=== PATIENT | male | born 1990 | race Caucasian/White ===

== ENCOUNTER 2017-05-09 16:49 | Emergency (ER) | payer OTHER ==
[2017-05-09 17:04] VITALS: TEMP 97.8
[2017-05-09] MEDS: traMADol 37.5MG/APAP 325MG 1 EA TAB PO ONE (17:33)
[2017-05-09] MEDS: KETOROLAC TROMETHAMINE INJ 60 MG/2 ML VIAL IM ONE (17:35)
[2017-05-09] MEDS: ORPHENADRINE CITRATE 30 MG/ML AMP IM ONE (17:35)
--- NOTE | 2017-05-09 17:40 | ED.PDOC ---
History of Present Illness - General Chief Complaint: Back Pain or Injury Stated Complaint: left sided lower back pain Time Seen by Provider: 05/09/17 17:10 Source: patient - History of Present Illness Initial Comments: PT PRESENTS TO THE ED WITH COMPLAINT OF SUDDEN ONSET OF LEFT LOWER BACK PAIN THAT OCCURRED TODAY WHILE PUTTING ON HIS BOOT AT WORK. PT HAS A HISTORY OF LUMBAR DISC HERNIATION AND REPORTS INTERMITTENT BACK PAIN A RESULT OF. PT REPORTS TAKING NO OTC PAIN MEDS. Timing/Duration: 7-24 hours Quality/Severity: moderate, dullness, radiation Back Pain Location: lumbar spine Back Pain Radiation: upper legs Method of Injury/Prior Injury: twisted Improving Factors: immobilization, rest Worsening Factors: movement Associated Symptoms: denies symptoms Allergies/Adverse Reactions: Allergies Penicillins Allergy (Verified 05/09/17 17:04) Home Medications: Ambulatory Orders Cyclobenzaprine HCl [Flexeril] 10 mg PO Q6HR PRN #20 tab 05/09/17 Ibuprofen 800 mg PO Q8HR PRN #30 tab 05/09/17 Tramadol-Acetaminophen [Ultracet] 1 - 2 tab PO Q6HR PRN #30 tab 05/09/17 Review of Systems - Review of Systems Constitutional: Denies: chills, fever Respiratory: Denies: cough, short of breath Cardiology: Denies: chest pain, palpitations Gastrointestinal/Abdominal: Denies: diarrhea, vomiting Genitourinary: Denies: dysuria, frequency Musculoskeletal: States: see HPI, back pain. Denies: neck pain Skin: Denies: dryness, lesions Past Medical History (General) - Patient Medical History Hx Stroke: No Hx Congestive Heart Failure: No Hx Diabetes: No - Vaccination History Hx Influenza Vaccination: No - Social History Hx Tobacco Use: Yes Family Medical History - Family History Father Family History: Unknown Living Status: Unknown Physical Exam - Physical Exam General Appearance: Alert, Comfortable, No apparent distress, Well Developed, Well Groomed, Well Hydrated Back Exam: no vertebral tenderness, decreased range of motion, muscle spasm - TO LEFT PARA LUMBAR REGION Extremity Exam: no evidence of injury Neurologic: alert, normal mood/affect, oriented x 3 Skin Exam: normal color, warm/dry Progress - Progress Progress: 05/09/17 18:18 PT REPORTS SIGNIFICANT IMPROVEMENT IN SYMPTOMS AFTER PAIN MEDS AND MUSCLE RELAXANT. PT ABLE TO STAND UPRIGHT WITHOUT DIFFICULTY. Departure - Departure Clinical Impression: Acute back pain with sciatica Qualifiers: Laterality: left Qualified Code(s): M54.42 - Lumbago with sciatica, left side Time of Disposition: 18:19 Disposition: Discharge to Home or Self Care Condition: Good Departure Forms: ED Discharge - Pt. Copy, Patient Portal Self Enrollment Instructions: DI for Back Pain With Sciatica Diet: resume usual diet Activity: increase activity as tolerated, no lifting Referrals: Arthur Noble III, MD [Primary Care Provider] - 1-5 Days Prescriptions: Cyclobenzaprine HCl [Flexeril] 10 mg PO Q6HR PRN #20 tab PRN Reason: Muscle Spasms Tramadol-Acetaminophen [Ultracet] 1 - 2 tab PO Q6HR PRN #30 tab PRN Reason: Pain Ibuprofen 800 mg PO Q8HR PRN #30 tab PRN Reason: Pain Home Medications: Ambulatory Orders Cyclobenzaprine HCl [Flexeril] 10 mg PO Q6HR PRN #20 tab 05/09/17 Ibuprofen 800 mg PO Q8HR PRN #30 tab 05/09/17 Tramadol-Acetaminophen [Ultracet] 1 - 2 tab PO Q6HR PRN #30 tab 05/09/17
[2017-05-09 18:28] VITALS: BP 135/81; O2SAT 97
== END 2017-05-09 18:27 | disposition home or self-care (01) ==
LOC: ER 16:49
DX: M54.42 Lumbago with sciatica, left side (principal); Z88.0 Allergy status to penicillin
CPT/HCPCS: J1885; J2360